=== PATIENT | female | born 1995 | race Hispanic/Latino ===

== ENCOUNTER 2019-08-04 16:20 | Emergency (ER) | payer SELFPAY ==
[2019-08-04 18:17] VITALS: BP 116/69
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
== END 2019-08-04 18:53 | disposition left against medical advice (07) ==
LOC: ED 16:20
DX: O26.891 Other specified pregnancy related conditions, first trimester (principal); M54.2 Cervicalgia; Z3A.01 Less than 8 weeks gestation of pregnancy; Z53.21 Procedure and treatment not carried out due to patient leaving prior to being seen by health care provider

== ENCOUNTER 2019-11-29 20:05 | Emergency (ER) | payer MEDICAID ==
[2019-11-29 20:39] VITALS: BP 107/70
[2019-11-29] MEDS ORDERED: DIPHtheria,PERTUSSIS(ACELL),TETANUS VACCINE/PF 0.5 ML VIAL IM ONE (21:37)
--- NOTE | 2019-11-29 21:45 | Event Note ---
ED Screening Note Date of service: 11/29/19 Time: 21:44 ED Screening Note: Patient complains of laceration to the thumb after cutting her finger on the edge of a glass while washing dishes today 22 weeks States tetanus is not up-to-date This initial assessment/diagnostic orders/clinical plan/treatment(s) is/are subject to change based on patients health status, clinical progression and re- assessment by fellow clinical providers in the ED. Further treatment and workup at subsequent clinical providers discretion. Patient/guardian urged not to elope from the ED as their condition may be serious if not clinically assessed and managed. Initial orders include:
[2019-11-30] MEDS ORDERED: ACETAMINOPHEN 500 MG TAB PO ONE (01:59)
[2019-11-30] MEDS ORDERED: LIDOCAINE-MPF (1%) 10 MG/1 ML VIAL 5 ML INFILTRATI ONE (01:59)
--- NOTE | 2019-11-30 03:02 | Emergency Department Report ---
- General Chief Complaint: Wound/Laceration Stated Complaint: RT THUMB LACERATION Time Seen by Provider: 11/29/19 21:37 Source: patient, EMS Mode of arrival: Ambulatory Limitations: No Limitations - History of Present Illness Initial Comments: Patient is a A0 24-year-old white female who is approximately 24 weeks gestation and who presents to the ED with acute onset painful bleeding dorsal right thumb laceration after she accidentally cut her right thumb while washing a glass vase at home about 4 hours ago. Patient states that the piece of glass broke and cut her on the right thumb. Patient states that she is up-to-date with her vaccinations. Patient states that the bleeding is well controlled at this time after being dressed by the EMS on her way to the ED. Patient denies numbness and tingling or weakness of right arm, syncope, chest pain, shortness of breath, abdominal pain or vaginal bleeding or dizziness. -: Sudden, hour(s) (4) Location: other (right thumb) Extremity Location: Right: Hand (dorsal right thumb laceration) Place: home Patient Tetanus UTD: Yes Context: accidental, sharp object use Associated Symptoms: pain. denies: loss of feeling/numbness, suspect foreign body present, unable to move injured part, weakness followed by dizziness, nausea/vomiting, fever - Related Data Previous Rx's Medication Instructions Recorded Last Taken Type Acetaminophen [Tylenol] 500 mg PO Q6HR PRN #24 tablet 11/30/19 Unknown Rx cephALEXin [Keflex] 500 mg PO Q8HR #30 cap 11/30/19 Unknown Rx Allergies Allergy/AdvReac Type Severity Reaction Status Date / Time No Known Allergies Allergy Verified 11/29/19 20:37 ED Review of Systems ROS: Stated complaint: RT THUMB LACERATION Other details as noted in HPI Constitutional: denies: chills, fever Eyes: denies: eye pain, eye discharge, vision change ENT: denies: ear pain, throat pain Respiratory: denies: cough, shortness of breath, wheezing Cardiovascular: denies: chest pain, palpitations Endocrine: no symptoms reported Gastrointestinal: denies: abdominal pain, nausea, diarrhea Genitourinary: denies: urgency, dysuria, discharge Musculoskeletal: arthralgia (right thumb pain due to a bleeding right thumb laceration wound). denies: back pain, joint swelling Skin: other (Bleeding dorsal right thumb laceration wound). denies: rash, lesions Neurological: denies: headache, weakness, paresthesias Psychiatric: denies: anxiety, depression Hematological/Lymphatic: denies: easy bleeding, easy bruising ED Past Medical Hx - Past Medical History Previous Medical History?: No - Surgical History Past Surgical History?: No - Social History Smoking Status: Never Smoker Substance Use Type: None - Medications Home Medications: Home Medications Medication Instructions Recorded Confirmed Last Taken Type Acetaminophen [Tylenol] 500 mg PO Q6HR PRN #24 tablet 11/30/19 Unknown Rx cephALEXin [Keflex] 500 mg PO Q8HR #30 cap 11/30/19 Unknown Rx ED Physical Exam - General Limitations: No Limitations General appearance: alert, in no apparent distress - Head Head exam: Present: atraumatic, normocephalic - Eye Eye exam: Present: normal appearance, PERRL, EOMI Pupils: Present: normal accommodation - ENT ENT exam: Present: normal exam, normal orophraynx, mucous membranes moist, TM's normal bilaterally, normal external ear exam - Neck Neck exam: Present: normal inspection, full ROM. Absent: tenderness - Respiratory Respiratory exam: Present: normal lung sounds bilaterally. Absent: respiratory distress, wheezes, chest wall tenderness, accessory muscle use, decreased breath sounds, prolonged expiratory - Cardiovascular Cardiovascular Exam: Present: normal rhythm, tachycardia, normal heart sounds. Absent: systolic murmur, diastolic murmur, rubs, gallop - GI/Abdominal GI/Abdominal exam: Present: soft, normal bowel sounds. Absent: tenderness, guarding, rebound, hyperactive bowel sounds, hypoactive bowel sounds - Extremities Exam Extremities exam: Present: normal inspection, full ROM, tenderness (Palpable right thumb tenderness due to a bleeding 4 cm laceration on dorsal right thumb), normal capillary refill - Back Exam Back exam: Present: normal inspection, full ROM. Absent: tenderness, CVA tenderness (R), CVA tenderness (L), muscle spasm, paraspinal tenderness, vertebral tenderness - Neurological Exam Neurological exam: Present: alert, oriented X3, CN II-XII intact, normal gait, reflexes normal - Psychiatric Psychiatric exam: Present: normal affect, normal mood - Skin Skin exam: Present: warm, dry, intact, normal color, other (Bleeding dorsal right thumb 4 cm laceration). Absent: rash ED Course Vital Signs 11/29/19 11/29/19 20:38 21:32 Temperature 98.3 F 98.3 F Pulse Rate 112 H 108 H Respiratory 16 18 Rate Blood Pressure 107/70 107/70 O2 Sat by Pulse 98 100 Oximetry - Laceration /Wound Repair Right Dorsal Finger Wound Location: upper extremity (Dorsal right thumb) Wound Length (cm): 4 Wound's Depth, Shape: superficial, linear Wound Explored: contaminated Irrigated w/ Saline (ccs): 50 Betadine Prep?: Yes Anesthesia: 1% Lidocaine Volume Anesthetic (ccs): 5 Wound Debrided: extensive Wound Repaired With: sutures Suture Size/Type: 4:0 Number of Sutures: 10 Layer Closure?: No Sterile Dressing Applied?: Yes Progress: Patient tolerated the procedure well. Patient was discharged home on pain medication and prophylactic antibiotic and was advised to return to the ED or to her primary care physician in 12 to 14 days for suture removal. Patient was otherwise advised to return to the ED immediately if her symptoms get worse especially if she develops a fever, chills, nausea, vomiting, swelling right arm or worsening pain with redness on the right thumb. ED Medical Decision Making - Medical Decision Making This is a A0 24-year-old white female who is approximately 24 weeks gestation and who presents to the ED with acute onset painful bleeding dorsal right thumb laceration after she accidentally cut her right thumb while washing a glass vase at home about 4 hours ago. Patient states that the piece of glass broke and cut her on the right thumb. Patient states that she is up-to-date with her vaccinations. Patient states that the bleeding is well controlled at this time after being dressed by the EMS on her way to the ED. in the ED, patient is alert and oriented x3 and is not in any distress but anxious and tachycardic in triage. Patient was treated for pain in the ED and the dorsal right thumb laceration wound was cleaned thoroughly and sutured per protocol. Patient tolerated the procedure well and was discharged home on medication including oral antibiotics. Patient was advised to return to the ED immediately if symptoms get worse, otherwise follow-up with her primary care physician in 7 to 10 days for reevaluation. Patient was otherwise advised to return to the ED or to her primary care physician in 12 to 14 days for suture removal. - Differential Diagnosis laceration; punture wound; thumb sprain Critical care attestation.: If time is entered above; I have spent that time in minutes in the direct care of this critically ill patient, excluding procedure time. ED Disposition Clinical Impression: Laceration of right thumb without foreign body without damage to nail Qualifiers: Encounter type: initial encounter Qualified Code(s): S61.011A - Laceration without foreign body of right thumb without damage to nail, initial encounter Disposition: TO HOME OR SELFCARE Is pt being admited?: No Does the pt Need Aspirin: No Condition: Stable Instructions: Suture Care (ED), Laceration (ED), Finger Laceration (ED) Additional Instructions: Take medication with food, drink plenty of fluids and follow-up with your primary care physician in 7 to 10 days for reevaluation. Return to the ED immediately if the wound develops severe pain, swelling, redness around the thumb, fever and chills, nausea and vomiting. Otherwise return to the ED or to your primary care physician in 12 to 14 days for suture removal. Prescriptions: Acetaminophen [Tylenol] 500 mg PO Q6HR PRN #24 tablet PRN Reason: Pain , Severe (7-10) cephALEXin [Keflex] 500 mg PO Q8HR #30 cap Referrals: [facility] [Provider Group] - 7-10 days Time of Disposition: 03:00 Print Language: PORTUGUESE
== END 2019-11-30 03:25 | disposition home or self-care (01) ==
LOC: ED 20:05
DX: O9A.212 Injury, poisoning and certain other consequences of external causes complicating pregnancy, second trimester (principal); S61.011A Laceration without foreign body of right thumb without damage to nail, initial encounter; Z79.899 Other long term (current) drug therapy; Z3A.22 22 weeks gestation of pregnancy; W25.XXXA Contact with sharp glass, initial encounter; Y93.89 Activity, other specified; Y92.89 Other specified places as the place of occurrence of the external cause; Y99.8 Other external cause status
CPT/HCPCS: 99283

== ENCOUNTER 2020-03-17 16:56 | Outpatient (CLI) | payer MEDICAID ==
[2020-03-17 17:32] VITALS: BP 113/66
--- NOTE | 2020-03-18 06:38 | Ultrasound Report ---
LIMITED OB ULTRASOUND INDICATION: well-being, amniotic fluid index FINDINGS: There is a single intrauterine in a cephalic presentation. The amniotic fluid index is 15.9 cm which is within the normal range. heart rate is 143 bpm. IMPRESSION: The amniotic fluid index is 15.9 cm. BIOPHYSICAL PROFILE INDICATION: well-being COMPARISON: None FINDINGS: breathing movement: 2/2 movement: 2/2 posture and tone: 2/2 Qualitative amniotic fluid volume: 2/2 IMPRESSION: Total score for biophysical profile is 8/8 heart rate is 143 bpm Signer Name: Alonso Shahid MD Signed: 03/18/2020 6:33 AM Workstation Name: [id number]
== END 2020-03-17 18:14 | disposition home or self-care (01) ==
LOC: TRG 16:56 → APU 16:58 → TRG 18:14
PROVIDERS: ATTEND Obstetrics & Gynecology
DX: Z34.83 Encounter for supervision of other normal pregnancy, third trimester (principal); Z3A.38 38 weeks gestation of pregnancy
CPT/HCPCS: 76815; 76819

== ENCOUNTER 2020-03-21 15:17 | Inpatient (IN) | payer MEDICAID ==
--- NOTE | 2020-03-21 18:26 | History and Physical Report ---
History of Present Illness Date of examination: 03/21/20 Date of admission: 03/21/20 15:17 Chief complaint: induction of labor History of present illness: 25yo G1 at 39+0/7 weeks by LNMP presents for induction of labor. Depression affecting in second trimester: on wellbutrin GBS positive Morbid Obesity Vit D deficiency PNC at [facility]: initiated car at 7+5/7 weeks, total nine visits, last visit at 36+0/7 weeks Labs: A/positive H/H 12.1/38.4 pap NILM Rubella immune VDRL NR HBsAG negative HIV negative PTL 308K GC/Chlamydia: negative Varicella Immune HSV 11 Trich negative GCT 68/139 GBS positive Past History Past Medical History: other (depression) Past Surgical History: no surgical history Family/Genetic History: none Social history: no significant social history - Obstetrical History Expected Date of Delivery: 03/27/20 Actual Gestation: 39 Week(s) 1 Day(s) : 1 Medications and Allergies Allergies Allergy/AdvReac Type Severity Reaction Status Date / Time No Known Allergies Allergy Verified 11/29/19 20:37 Home Medications Medication Instructions Recorded Confirmed Last Taken Type Acetaminophen [Tylenol] 500 mg PO Q6HR PRN #24 tablet 11/30/19 Unknown Rx cephALEXin [Keflex] 500 mg PO Q8HR #30 cap 11/30/19 Unknown Rx Review of Systems All systems: negative (no complaints) - Vital Signs Vital signs: Vital Signs Pulse Pulse Ox 102 H 98 03/21/20 17:04 03/21/20 17:04 Temp Pulse Resp BP Pulse Ox 89 111/76 99 03/21/20 18:22 03/21/20 17:53 03/21/20 18:22 - Physical Exam Cardiovascular: Regular rate Lungs: Positive: Clear to auscultation Abdomen: Positive: normal appearance, normal bowel sounds Genitourinary (Female): Positive: normal external genitalia Vagina: Positive: normal moisture Anus/Rectum: Positive: normal perianal skin Extremities: Positive: normal Deep Tendon Reflex Grade: Normal +2 - Obstetrical FHR: category 1 Cervical Dilatation: 0 Uterine Contraction Pattern: Regular Results Result Diagrams: 03/21/20 19:15 All other labs normal. Assessment and Plan IOL for polyhydramnios and suspected LGA per [facility] Plan Patient unable to participate in exam due to severe discomfort Plan for immediate epidural, cervical check and possible cervidil vs oxytocin GBS prophylaxis informed consent Maternal/ well being reassuring overall. Vasquez Hope MD
[2020-03-21] MEDS ORDERED: BUTORPHANOL 2 MG/1 ML INJ IV PRN (18:28)
[2020-03-21] MEDS ORDERED: fentaNYL 100 MCG/2 ML INJ IV PRN (18:28)
[2020-03-21] MEDS ORDERED: TERBUTALINE 1 MG/1 ML INJ SUB-Q PRN (18:28)
[2020-03-21] MEDS ORDERED: ePHEDrine SULFATE 50 MG/1 ML INJ IV PRN (18:28)
[2020-03-21] MEDS ORDERED: OXYTOCIN DRIP 30 UNITS/500 ML BAG IV SCH ×2 (19:00)
[2020-03-21] MEDS ORDERED: MINERAL OIL 30 ML ORAL LIQD PO PRN (19:28)
[2020-03-21] MEDS ORDERED: AMPICILLIN/NS 2 GM/100 ML 2 GM/100 ML BAG IV ONE (19:28)
[2020-03-21] MEDS ORDERED: DINOPROSTONE 10 MG VAG SUPP VG ONE (19:28)
[2020-03-21] MEDS ORDERED: LIDOCAINE (2%) 20 MG/1 ML VIAL 20 ML MDV INFILTRATI ONE (19:28)
[2020-03-21 20:37] LABS: Hematocrit 35.6 % (30.3-42.9); Hemoglobin 11.7 gm/dl (10.1-14.3); Mean Corpuscular HGB Conc 33 % (30-34); Mean Corpuscular Volume 90 fl (79-97); Red Blood Count 3.97 M/mm3 (3.65-5.03); Red Cell Distribution Width 15.1 % (13.2-15.2)
[2020-03-21 20:46] LABS: Platelet Count 149 K/mm3 (140-440)
[2020-03-21] MEDS ORDERED: ONDANSETRON 4 MG/2 ML INJ IV PRN (21:06)
[2020-03-21] MEDS ORDERED: NalbUPHINE 10 MG/1 ML INJ IV PRN (21:06)
[2020-03-21] MEDS ORDERED: NALOXONE 2 MG/2 ML INJ IV PRN (21:06)
[2020-03-21] MEDS ORDERED: diphenhydrAMINE 50 MG/ML VIAL IV PRN (21:06)
[2020-03-21] MEDS: LACTATED RINGERS 1,000 ML IV SCH (21:39)
[2020-03-21] MEDS ORDERED: fentaNYL-BUPIV 2 MCG/ML-0.125% 200 MCG/100 ML BAG EPIDURAL SCH (22:00)
--- NOTE | 2020-03-21 22:36 | Anesthesia Consultation ---
Anesthesia Consult and Med Hx Date of service: 03/21/20 - Airway Anesthetic Teeth Evaluation: Good ROM Head & Neck: Adequate Mental/Hyoid Distance: Adequate Mallampati Class: Class II Intubation Access Assessment: Probably Good - Pulmonary Exam CTA: Yes - Cardiac Exam Cardiac Exam: RRR - Pre-Operative Health Status ASA Pre-Surgery Classification: ASA2 Proposed Anesthetic Plan: Epidural - Pulmonary Hx Smoking: No Hx Asthma: No Hx Sleep Apnea: No - Cardiovascular System Hx Hypertension: No Hx Heart Attack/AMI: No - Central Nervous System Hx Seizures: No Hx Psychiatric Problems: No - Gastrointestinal Hx Gastroesophageal Reflux Disease: No - Endocrine Hx Renal Disease: No Hx Hypothyroidism: No Hx Hyperthyroidism: No - Hematic Hx Anemia: No Hx Sickle Cell Disease: No - Other Systems Hx Alcohol Use: No
--- NOTE | 2020-03-21 22:38 | Progress Note ---
Labor Epidural - Labor Epidural Start Time: 22:05 Stop Time: 22:30 Performed by:: KEV MARX (Brandie SMITH) Procedure: Patient is requesting a laboring epidural for laboring pain. Patient IDed, H&P reviewed, all questions and concerns were answered, and consent was signed. Timeout was performed at bedside. Patient in sitting position. Sterile prep and drape was performed. 3ml of 1% lidocaine skin wheal at L[3]- L [4]. 18- gauge Touhy epidural needle was advanced to loss of resistance with air technique. Negative CSF negative blood. Epidural catheter advanced to [14] centimeters. [-] Aspiration [-] test dose. Sterile dressing applied. Patient tolerated procedure.
[2020-03-22] MEDS ORDERED: DINOPROSTONE 10 MG VAG SUPP VG ONE (10:00)
[2020-03-22] MEDS ORDERED: LACTATED RINGERS 1000 ML IV SOLN ONE ×2 (14:00→14:30)
[2020-03-22] MEDS ORDERED: FENTANYL EPIDURAL ONE (14:30)
[2020-03-22] MEDS ORDERED: OXYTOCIN/NS 30 UNIT/500 ML DRIP IV ONE (14:30)
[2020-03-22] MEDS ORDERED: OXYTOCIN 10 UNIT/1 ML INJ ONE ×2 (14:30→17:37)
[2020-03-22] MEDS ORDERED: LIDOCAINE (2%) 20 MG/1 ML VIAL 20 ML MDV INFILTRATI ONE (14:30)
[2020-03-22] MEDS ORDERED: fentaNYL 100 MCG/2 ML INJ ONE (14:30)
[2020-03-22] MEDS ORDERED: KETOROLAC 30 MG/1 ML INJ ONE ×2 (14:30→17:37)
[2020-03-22] MEDS ORDERED: ONDANSETRON 4 MG/2 ML INJ ONE ×2 (14:30→17:37)
[2020-03-22] MEDS ORDERED: BUPIVACAINE EPIDURAL ONE (14:30)
[2020-03-22] MEDS ORDERED: ePHEDrine SULFATE 50 MG/1 ML INJ ONE ×2 (14:30→17:37)
[2020-03-22] MEDS ORDERED: LIDOCAINE 2%/EPINEPHRINE 1:200,000 VIAL (20 ML) INFILTRATI ONE (14:48)
[2020-03-22] MEDS ORDERED: METOCLOPRAMIDE 10 MG/2 ML INJ ONE (16:36)
[2020-03-22] MEDS ORDERED: BICITRA ORAL LIQD 30ML ONE (16:36)
[2020-03-22] MEDS ORDERED: FAMOTIDINE 20 MG/2 ML INJ IV ONE (16:37)
--- NOTE | 2020-03-22 17:34 | Progress Note ---
Assessment and Plan - Patient Problems (1) Encounter for induction of labor Current Visit: Yes Status: Acute Plan to address problem: Consulted Dr. Merritt Cervidil out, removed around 0700 Epidural remains off Pt given time to speak with partner about delivery method decision (2) Maternal obesity affecting , antepartum Current Visit: Yes Status: Acute (3) Positive GBS test Current Visit: Yes Status: Acute Plan to address problem: Initiate GBS protocol (4) HSV-2 seropositive Current Visit: Yes Status: Acute Subjective - Subjective Date of service: 03/22/20 (944) Principal diagnosis: IOL secondary to Patient reports: new complaints (Attempted to check pts cervix without success. Pt closed legs, pushed back in bed and cried. Explain to pt that without checking her cervix I can not determine what the next plan of care is. The epidural is off with an empty bag, RN stated that she stopped the epidural secondary to minimal to no varibility on assessment strip. Pt states that she does not want to feel anything while having the baby, " I can't take it, it hurts". Explained that it is impossible to deliver a baby without feeling anything. Explained to pt that I would consult the physician concerning the possible options for delivery, pt verbalized understanding.), movement normal, contractions ("I can feel them a little bit"), no loss of fluid, no vaginal bleeding Objective - Vital Signs Vital Signs: Vital Signs - 12hr 03/22/20 03/22/20 03/22/20 06:32 07:31 08:10 Pulse Rate 88 98 H 60 Blood Pressure 107/67 110/68 O2 Sat by Pulse 74 L Oximetry 03/22/20 03/22/20 03/22/20 08:31 09:17 09:18 Pulse Rate 83 Blood Pressure 110/72 O2 Sat by Pulse 55 L 98 Oximetry 03/22/20 03/22/20 03/22/20 09:23 09:28 09:31 Pulse Rate 85 91 H 82 Blood Pressure 101/63 O2 Sat by Pulse 100 99 Oximetry 03/22/20 03/22/20 03/22/20 09:33 09:38 09:43 Pulse Rate 84 83 94 H Blood Pressure O2 Sat by Pulse 100 100 100 Oximetry 03/22/20 03/22/20 03/22/20 09:45 09:48 09:53 Pulse Rate 78 98 H 96 H Blood Pressure O2 Sat by Pulse 84 99 98 Oximetry 03/22/20 03/22/20 03/22/20 09:58 10:01 10:03 Pulse Rate 95 H 89 104 H Blood Pressure O2 Sat by Pulse 98 89 97 Oximetry 03/22/20 03/22/20 03/22/20 10:08 10:13 10:18 Pulse Rate 94 H 92 H 89 Blood Pressure O2 Sat by Pulse 99 100 99 Oximetry 03/22/20 03/22/20 03/22/20 10:23 10:28 10:31 Pulse Rate 88 88 86 Blood Pressure 114/71 O2 Sat by Pulse 98 99 Oximetry 03/22/20 03/22/20 03/22/20 10:33 10:38 11:59 Pulse Rate 95 H 95 H 119 H Blood Pressure O2 Sat by Pulse 99 98 92 Oximetry 03/22/20 03/22/20 03/22/20 12:00 12:05 12:10 Pulse Rate 86 85 87 Blood Pressure 109/60 O2 Sat by Pulse 99 99 99 Oximetry 03/22/20 03/22/20 03/22/20 12:15 12:20 12:25 Pulse Rate 85 89 89 Blood Pressure O2 Sat by Pulse 98 99 98 Oximetry 03/22/20 03/22/20 03/22/20 12:30 12:35 12:40 Pulse Rate 90 82 84 Blood Pressure O2 Sat by Pulse 98 99 99 Oximetry 03/22/20 03/22/20 03/22/20 12:45 12:50 12:55 Pulse Rate 81 85 81 Blood Pressure O2 Sat by Pulse 99 99 99 Oximetry 03/22/20 03/22/20 03/22/20 13:00 13:05 13:10 Pulse Rate 88 89 88 Blood Pressure O2 Sat by Pulse 99 99 99 Oximetry 03/22/20 03/22/20 03/22/20 13:15 13:20 13:25 Pulse Rate 87 99 H 91 H Blood Pressure O2 Sat by Pulse 99 99 99 Oximetry 03/22/20 03/22/20 03/22/20 13:30 13:35 13:40 Pulse Rate 89 87 95 H Blood Pressure O2 Sat by Pulse 99 99 99 Oximetry 03/22/20 03/22/20 03/22/20 13:45 13:50 13:55 Pulse Rate 86 91 H 91 H Blood Pressure O2 Sat by Pulse 99 99 100 Oximetry 03/22/20 03/22/20 03/22/20 14:00 14:05 14:10 Pulse Rate 90 93 H 96 H Blood Pressure O2 Sat by Pulse 99 99 100 Oximetry 03/22/20 03/22/20 03/22/20 14:15 14:20 14:25 Pulse Rate 92 H 87 95 H Blood Pressure O2 Sat by Pulse 98 100 100 Oximetry 03/22/20 03/22/20 03/22/20 14:30 14:35 14:40 Pulse Rate 84 90 87 Blood Pressure O2 Sat by Pulse 100 99 100 Oximetry 03/22/20 03/22/20 03/22/20 14:45 14:50 14:55 Pulse Rate 92 H 91 H 93 H Blood Pressure O2 Sat by Pulse 100 99 99 Oximetry 03/22/20 03/22/20 03/22/20 15:00 15:05 15:10 Pulse Rate 94 H 89 82 Blood Pressure O2 Sat by Pulse 99 99 99 Oximetry 03/22/20 03/22/20 03/22/20 15:15 15:20 15:25 Pulse Rate 92 H 90 91 H Blood Pressure O2 Sat by Pulse 100 100 99 Oximetry 03/22/20 03/22/20 03/22/20 15:30 15:35 15:40 Pulse Rate 90 89 86 Blood Pressure O2 Sat by Pulse 99 100 100 Oximetry 03/22/20 03/22/20 03/22/20 15:45 15:50 15:55 Pulse Rate 96 H 91 H 84 Blood Pressure O2 Sat by Pulse 100 100 100 Oximetry 03/22/20 03/22/20 03/22/20 16:00 16:05 16:10 Pulse Rate 83 93 H 86 Blood Pressure O2 Sat by Pulse 100 100 100 Oximetry 03/22/20 03/22/20 03/22/20 16:15 16:20 16:25 Pulse Rate 85 88 85 Blood Pressure O2 Sat by Pulse 99 100 100 Oximetry 03/22/20 03/22/20 03/22/20 16:30 16:35 16:40 Pulse Rate 90 87 92 H Blood Pressure O2 Sat by Pulse 100 99 100 Oximetry 03/22/20 03/22/20 03/22/20 16:45 16:50 16:55 Pulse Rate 82 86 98 H Blood Pressure O2 Sat by Pulse 100 100 100 Oximetry 03/22/20 03/22/20 17:00 17:05 Pulse Rate 98 H 81 Blood Pressure O2 Sat by Pulse 98 98 Oximetry - Exam Breasts: deferred Cardiovascular: Regular rate Lungs: Normal air movement Abdomen: Present: other (gravid) Uterus: Present: other (enlarged, S=D) FHR: category 2 (very minimal variability with no decels at this time. BPP 8/8; NANETTE normal) Uterine Contraction Monitor Mode: External Cervical Dilatation: 0.5 (per RN) Cervical Effacement Percentage: 40 (soft per RN) station: -3 Uterine Contraction Frequency (min): 2-4 Uterine Contraction Pattern: Irregular Uterine Tone Measurement Phase: Resting Uterine Contraction Intensity: Mild Extremities: edema - Labs Labs: Abnormal Labs 03/21/20 19:15 WBC 11.2 H Laboratory Results - last 24 hr 03/21/20 03/21/20 19:15 19:18 WBC 11.2 H RBC 3.97 Hgb 11.7 Hct 35.6 MCV 90 MCH 30 MCHC 33 RDW 15.1 Plt Count 149 Blood Type A POSITIVE Antibody Screen Negative
[2020-03-22] MEDS ORDERED: ceFAZolin/STERILE WATER 2 GM/20 ML SYRINGE IV ONE (17:35)
--- NOTE | 2020-03-22 17:41 | Event Note ---
Date: 03/22/20 Given inability to induce, will proceed with primary c section. Patient agreeable. Consents signed. Questions soliticted and answered.
[2020-03-22] MEDS ORDERED: HYDROmorphone 1 MG/1 ML INJ IV PRN (17:44)
[2020-03-22] MEDS ORDERED: PROMETHAZINE 25 MG TAB PO PRN (17:44)
[2020-03-22] MEDS ORDERED: ONDANSETRON 4 MG/2 ML INJ IV PRN ×2 (17:44→18:46)
[2020-03-22] MEDS ORDERED: PROMETHAZINE 25 MG RECT SUPP PR PRN ×2 (17:44→18:46)
--- NOTE | 2020-03-22 17:44 | Anesthesia Day of Surgery ---
Anesthesia Day of Surgery - Day of Surgery Patient Examined: Yes Patient H&P Reviewed: Yes Patient is NPO: Yes Beta Blockers: No Cardiac Clearance: No Pulmonary Clearance: No Chau's Test: N/A
[2020-03-22] MEDS ORDERED: WATER FOR IRRIG STERILE 1,500 ML BOTTLE IR ONE (17:50)
[2020-03-22] MEDS ORDERED: SODIUM CHLORIDE 0.9% IRR 1,500 ML BOTTLE IR ONE (17:50)
[2020-03-22] MEDS ORDERED: KETAMINE/STERILE WATER 50 MG/ML SYRINGE ONE (18:01)
--- NOTE | 2020-03-22 18:43 | Procedure Note ---
OB Delivery Note - Delivery Date of Delivery: 03/22/20 Surgeon: JOSE DUBOIS JR Estimated blood loss: other (800cc) - Section Preop diagnosis: arrest of dilation Postop diagnosis: same section procedure: section, primary low transverse Disposition: PACU Complications: none Narrative: Indication: 25-year-old G1 at 39 weeks 1 day complicated by class II obesity and vitamin D deficiency status post failed induction of labor for inability to induce presenting for primary . Findings: Normal uterus, tubes and ovaries. Clear fluid. No nuchal cord. Delivery of male infant at 1804 Weight 4246g 20.5 inches Apgars 8/9 EBL 800 cc Intraoperative IV fluids of 100 cc Urine output 25 cc Procedure: Patient was taken to the operating room prepped and draped in the usual sterile fashion. Pfannenstiel skin incision was made and carried down to the underlying fascia. Fascia was incised and the incision was distended bilaterally. Rectus fascia was dissected off the rectus muscle superiorly and inferiorly. Peritoneum was identified and entered. Peritoneal incision extended superiorly and inferiorly. The bladder was visualized. The bladder blade was placed. Uterine hysterotomy incision was made and extended bilaterally. The baby was delivered in the typical vertex fashion. Baby was bulb suction at delivery. The cord was cut and clamped and handed off to the team. The placenta was delivered spontaneously. The uterus was exteriorized and cleared of all clots and debris. Uterine incision was closed with a 0 Vicryl in a running locked fashion. Bladder flap was reapproximated with 2-0 Vicryl.Good hemostasis was noted. The urine was noted to be clear. Uterus, tubes, and ovaries were returned to the abdominal cavity. Bilateral gutters were cleared and the abdomen and pelvis were irrigated. Good hemostasis noted. The rectus muscle was reapproximated with 2-0 Vicryl. Attention was directed towards the rectus fascia which was reapproximated with 0 PDS in a running fashion. The subcutaneous tissue was irrigated and reapproximated with 2-0 Vicryl in a running fashion. Skin was closed with a 4-0 Vicryl in a subcuticular fashion. The procedure was completed and the patient tolerated the procedure well. All instruments and lap counts were correct x2. - A at 1 minute: 8 at 5 minutes: 9 Infant Gender: Male
[2020-03-22] MEDS ORDERED: NALOXONE 0.4 MG/1 ML INJ IV PRN (18:46)
[2020-03-22] MEDS ORDERED: LANOLIN/ZINC/DIMETHICONE (LANSINOH) 7 GM TP PRN (18:46)
[2020-03-22] MEDS ORDERED: SENNOSIDES 8.6 MG TAB PO PRN (18:46)
[2020-03-22] MEDS ORDERED: HYDROCORTISONE 25 MG RECTAL SUPP PR PRN (18:46)
[2020-03-22] MEDS ORDERED: SIMETHICONE 80 MG CHEW TAB PO PRN (18:46)
[2020-03-22] MEDS ORDERED: WITCH HAZEL/ GLYCERIN PAD TP PRN (18:46)
[2020-03-22] MEDS ORDERED: MORPHINE 4 MG/1 ML INJ IV PRN (18:46)
[2020-03-22] MEDS ORDERED: OXYTOCIN DRIP 30 UNITS/500 ML BAG IV SCH (19:00)
--- NOTE | 2020-03-22 19:22 | Progress Note ---
Regional Anesthesia Block - Regional Anesthesia Block Start Time: 19:00 Stop Time: 19:10 Performed By:: KEV MARX (Brandie SMITH) Procedure: Patient consented for TAP block for post surgical pain management. Patient identified, monitors placed, and time out performed. Mid axillary TAP identified bilaterally via ultrasound. Skin prepped bilaterally with [chlorhexidine] and [20g stimuplex] needle advanced to the TAP. 30ml [Marcaine 0.25% with 25mcg Precedex and Decadron 4mg] injected under ultrasound guidance on the [left] side. 30ml [Marcaine 0.25% with 25mcg Precedex and Decadron 4mg] injected under ultrasound guidance on the [right] side.
[2020-03-23] MEDS: KETOROLAC 30 MG/1 ML INJ IV SCH ×2 (00:29→05:41)
[2020-03-23] MEDS: LACTATED RINGERS 1,000 ML IV SCH (06:03)
--- NOTE | 2020-03-23 08:53 | Ultrasound Report ---
ULTRASOUND OBSTETRIC INDICATION / CLINICAL INFORMATION: WELL BEING. Clinical Gestational Age (GA): 39.2 weeks.days TECHNIQUE: Transabdominal. COMPARISON: Obstetric ultrasound 03/17/2020 FINDINGS: There is a single intrauterine . Biparietal Diameter = 9.3 cm = 38.0 weeks.days Head Circumference = 33.2 cm = 37.6 weeks.days Abdominal Circumference = 36.9 cm = 40.6 weeks.days Femur Length = 7.5 cm = 38.1 weeks.days Average Ultrasound Age (AUA) = 38.5 weeks.days Heart Rate: 138 beats per minute. Estimated Weight in grams (if calculated): 3828 g Estimated Weight Growth Percentile (if calculated): 81.2 Position: cephalic. Amniotic Fluid Volume: normal Amniotic Fluid Index (ANNETTE) in cm (if calculated): 17.1. breathing movement = 2 Gross body movement = 2 tone = 2 Qualitative amniotic fluid volume = 2 IMPRESSION: 1. Single, living intrauterine with estimated sonographic age of 38.5 weeks.days. No signif icant abnormalities. 2. biophysical profile = 01/01 Signer Name: Nick Buckner MD Signed: 03/23/2020 8:48 AM Workstation Name: [id number]
--- NOTE | 2020-03-23 09:00 | Post Anesthesia Evaluation ---
- Post Anesthesia Evaluation Patient Participated: Yes Airway Patent: Yes Stable Respiratory Function: Yes Nausea/Vomiting: No Temp > 96.8F: Yes Pain Manageable: Yes Adequeate Hydration: Yes Anesthesia Complications: No Block Receding Appropriately: Yes Patient on Ventilator: No
[2020-03-23 09:31] LABS: Hematocrit 31.5 % (30.3-42.9); Hemoglobin 10.6 gm/dl (10.1-14.3)
--- NOTE | 2020-03-23 12:34 | Progress Note ---
Assessment and Plan A: PostOp Day 2 Stable P: Follow routine postop orders. Encouraged increased ambulation. Subjective - Subjective Date of service: 03/23/20 Principal diagnosis: s/p primary low transverse Patient reports: appetite normal, voiding normally, ambulating normally [place]: doing well, bottle feeding (and ) Objective - Vital Signs Latest vital signs: Vital Signs Temp Pulse Resp BP BP Pulse Ox 03/23/20 07:32 98.0 F 64 17 103/73 97 03/23/20 04:35 98.3 F 67 20 120/83 03/23/20 00:55 98.2 F 66 20 117/82 97 03/22/20 20:30 98 F 74 18 123/72 97 03/22/20 20:00 98.4 F 72 19 126/63 96 03/22/20 19:45 70 23 108/61 97 03/22/20 19:30 76 19 110/54 95 03/22/20 19:15 82 13 129/82 96 03/22/20 19:10 68 23 123/77 98 03/22/20 19:05 76 27 H 115/64 99 03/22/20 19:00 98.4 F 84 23 110/60 98 03/22/20 17:20 87 98 03/22/20 17:15 82 98 03/22/20 17:10 82 98 03/22/20 17:05 81 98 03/22/20 17:00 98.4 F 98 H 98 03/22/20 16:55 98 H 100 03/22/20 16:50 86 100 03/22/20 16:45 82 100 03/22/20 16:40 92 H 100 03/22/20 16:35 87 99 03/22/20 16:30 90 100 03/22/20 16:25 85 100 03/22/20 16:20 88 100 03/22/20 16:15 85 99 03/22/20 16:10 86 100 03/22/20 16:05 93 H 100 03/22/20 16:00 83 100 03/22/20 15:55 84 100 03/22/20 15:50 91 H 100 03/22/20 15:45 96 H 100 03/22/20 15:40 86 100 03/22/20 15:35 89 100 03/22/20 15:30 90 99 03/22/20 15:25 91 H 99 03/22/20 15:20 90 100 03/22/20 15:15 92 H 100 03/22/20 15:10 82 99 03/22/20 15:05 89 99 03/22/20 15:00 94 H 99 03/22/20 14:55 93 H 99 03/22/20 14:50 91 H 99 03/22/20 14:45 92 H 100 03/22/20 14:40 87 100 03/22/20 14:35 90 99 03/22/20 14:30 84 100 03/22/20 14:25 95 H 100 03/22/20 14:20 87 100 03/22/20 14:15 92 H 98 03/22/20 14:10 96 H 100 03/22/20 14:05 93 H 99 03/22/20 14:00 90 99 03/22/20 13:55 91 H 100 03/22/20 13:50 91 H 99 03/22/20 13:45 86 99 03/22/20 13:40 95 H 99 03/22/20 13:35 87 99 03/22/20 13:30 89 99 03/22/20 13:25 91 H 99 03/22/20 13:20 99 H 99 03/22/20 13:15 87 99 03/22/20 13:10 88 99 03/22/20 13:05 89 99 03/22/20 13:00 88 99 03/22/20 12:55 81 99 03/22/20 12:50 85 99 03/22/20 12:45 81 99 03/22/20 12:40 84 99 03/22/20 12:35 82 99 Intake and Output 03/22/20 03/23/20 03/23/20 22:59 06:59 14:59 Intake Total 1200 120 Output Total 1000 400 600 Balance 200 -280 -600 Intake: IV 1200 Oral 0 120 Output: Urine 1000 400 600 Indwelling Catheter 800 400 600 Other: Total, Intake Amount 0 120 Total, Output Amount 250 400 600 # Voids Indwelling Catheter 1 - Exam Breasts: Present: normal Cardiovascular: Present: Regular rate, Normal S1, Normal S2 Lungs: Present: Clear to auscultation, Normal air movement Abdomen: Present: normal appearance, soft, normal bowel sounds Uterus: Present: normal, firm, fundal height below umbilicus Extremities: Present: normal Incision: Present: dry, dressed
[2020-03-23] MEDS: MAGNESIUM HYDROXIDE (MOM) ORAL LIQD UDC PO PRN ×2 (13:00→18:23)
[2020-03-23] MEDS: IBUPROFEN 800 MG TAB PO PRN (18:23)
[2020-03-24] MEDS: oxyCODONE /ACETAMINOPHEN 5-325MG TAB PO PRN ×3 (02:29→18:45)
[2020-03-24] MEDS: IBUPROFEN 800 MG TAB PO PRN ×2 (06:00→16:12)
[2020-03-24 16:57] VITALS: BP 104/62
--- NOTE | 2020-03-24 18:57 | Progress Note ---
Assessment and Plan A: S/P Primary LTCS p: D/c home if stable per pt's request Follow d/c instructions - Patient Problems (1) Status post primary low transverse section Current Visit: Yes Status: Acute Subjective - Subjective Date of service: 03/24/20 Principal diagnosis: s/p primary low transverse Patient reports: appetite normal, voiding normally, pain well controlled, ambulating normally : doing well, bottle feeding Objective - Vital Signs Latest vital signs: Vital Signs Temp Pulse Resp BP BP Pulse Ox 03/24/20 15:20 98 F 79 20 104/62 03/24/20 08:25 98.2 F 71 20 91/65 03/24/20 00:00 98.7 F 74 16 108/69 03/23/20 21:13 98.0 F 86 18 106/67 97 Intake and Output 03/24/20 03/24/20 03/24/20 06:59 14:59 22:59 Intake Total 300 320 240 Balance 300 320 240 Intake: Oral 320 240 Intake, Free Water 300 Other: Total, Intake Amount 320 240 # Voids Void 1 1 1 - Exam Breasts: Present: normal Abdomen: Present: normal appearance, soft, normal bowel sounds Vulva: both: normal Uterus: Present: normal, firm, fundal height below umbilicus Extremities: Present: normal Incision: Present: normal, dry, intact
--- NOTE | 2020-03-24 18:59 | Discharge Summary ---
Providers - Providers Date of Admission: 03/21/20 15:17 Date of discharge: 03/24/20 Attending physician: CRISTAL GROVE MD Primary care physician: CRISTAL GROVE MD Hospitalization Reason for admission: active labor Delivery: Procedure: primary low transverse Episiotomy: none Laceration: none Incision: normal, dry, intact Other procedures: none complications: none Discharge diagnosis: IUP at term delivered baby: male Condition at discharge: Stable Disposition: [place]-01 TO HOME OR SELFCARE - Discharge Diagnoses (1) Status post primary low transverse section Status: Acute Plan - Discharge Medications Prescriptions: Ibuprofen [Motrin 800 MG tab] 800 mg PO Q6H PRN #30 tablet PRN Reason: Pain, Mild (1-3) oxyCODONE /ACETAMINOPHEN [Percocet 5/325 mg] 1 tab PO Q6H PRN #30 tablet PRN Reason: Pain, Moderate (4-6) - Provider Discharge Summary Activity: no sex for 6 weeks, no heavy lifting 4 weeks, no strenuous exercise Diet: routine Additional instructions: [] Smoking cessation referral if applicable(refer to patient education folder for contact #) [] Refer to [facility]'s [facility] Booklet Call your doctor immediately for: * Fever > 100.5 * Heavy vaginal bleeding ( >1 pad per hour) * Severe persistent headache * Shortness of breath * Reddened, hot, painful area to leg or breast * Drainage or odor from incision. * Keep incision clean and dry at all times and follow doctor's instructions regarding bathing/showering - Follow up plan Follow up: JOSE DUBOIS JR, MD [Staff Physician] - 14 Days Forms: [facility] Discharge Summary
== END 2020-03-24 19:14 | disposition home or self-care (01) | DRG 765 ==
LOC: LD 15:17 → OB 03-22 21:03
PROVIDERS: ADMIT Obstetrics & Gynecology; ATTEND Obstetrics & Gynecology
PROC: 10D00Z1 Extraction of Products of Conception, Low, Open Approach (ICD-10-PCS; principal; 2020-03-22)
DX: O99.824 Streptococcus B carrier state complicating childbirth (principal); O40.3XX0 Polyhydramnios, third trimester, not applicable or unspecified; O62.2 Other uterine inertia; O99.214 Obesity complicating childbirth; O99.344 Other mental disorders complicating childbirth; F32.9 Major depressive disorder, single episode, unspecified; E66.01 Morbid (severe) obesity due to excess calories; Z20.828 Contact with and (suspected) exposure to other viral communicable diseases; Z37.0 Single live birth; Z3A.39 39 weeks gestation of pregnancy; Z79.899 Other long term (current) drug therapy
CPT/HCPCS: 36415; 76816; 76819; 85014; 85018; 85027; 86850; 86900; 86901; G0378; J0290; J0690; J1170; J1885; J2270; J2405; J2590; J3010; J3490; J7120; U0003